=== PATIENT | male | born 1995 | race Two or more races ===

== ENCOUNTER 2018-05-02 15:05 | Emergency (ER) | payer OTHER ==
--- NOTE | 2018-05-02 15:10 | PDOC ---
History of Present Illness - General Chief Complaint: Respiratory Stated Complaint: PERSISTENT COUGH History Source: Patient Exam Limitations: No Limitations Past History - Past Medical History Allergies/Adverse Reactions: Allergies Allergy/AdvReac Type Severity Reaction Status Date / Time No Known Allergies Allergy Verified 05/02/18 15:07 Home Medications: Ambulatory Orders Albuterol Sulfate Inhaler - [Ventolin Hfa Inhaler -] 2 inh PO Q6H PRN 05/02/18 Azithromycin 250 mg PO ASDIR 05/02/18 Benzonatate [Tessalon Pearls -] 200 mg PO TID 05/02/18 *DC/Admit/Observation/Transfer Diagnosis at time of Disposition: Costochondritis - Discharge Dispostion Disposition: HOME Condition at time of disposition: Stable Decision to Admit order: No - Referrals Referrals: Yong Arredondo [Other] [facility] [Provider Group] - Patient Instructions Printed Discharge Instructions: DI for Costochondritis Additional Instructions: you were evaluated in the emergency department for your right chest pain and previously diagnosed pneumonia. your chest xray did not show a pneumonia. please continue taking your antibiotics as prescribed. in addition, you can take ibuprofen 600 mg every 4-6 hours as needed for pain (do not exceed 2400 mg per 24 hours). Please follow up with your primary medical doctor or the doctor we referred you to within 72 hours after discharge for follow up care and management. Please return to the emergency department for worsening symptoms or new concerning symptoms such as fever/chills, nausea/vomiting, and shortness of breath. thank you. - Post Discharge Activity
[2018-05-02 15:29] VITALS: BP 104/60; PULSE 59; TEMP 98.2; BMI 23.6
[2018-05-02] MEDS ORDERED: KETOROLAC TROMETHAMINE 15 MG/ML VIAL IM ONE (16:11)
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
[2018-05-02] MEDS ORDERED: KETOROLAC TROMETHAMINE 15 MG/ML VIAL ONE (16:22)
== END 2018-05-02 17:30 | disposition home or self-care (01) ==
LOC: FER 15:05
PROC: 3E0233Z Introduction of Anti-inflammatory into Muscle, Percutaneous Approach (ICD-10-PCS; principal; 2018-05-02)
DX: M94.0 Chondrocostal junction syndrome [Tietze] (principal)
CPT/HCPCS: 71046-TC-FY; 99284-25